=== PATIENT | female | born 1960 | race Native Hawaiian/Other Pacific Islander ===

== ENCOUNTER 2016-11-24 11:49 | Outpatient (CLI) | payer OTHER ==
[~2016-11-24 11:49] MED LIST: ACET-689 PO; CLON1TAB18 PO; MOTRIN JR ST100 MG OR; PAXIL20 MG PO
== END 2016-11-24 11:51 | disposition short-term general hospital (02) ==
LOC: AMB 11:49
DX: R07.89 Other chest pain (principal)
CPT/HCPCS: A0425; A0427

== ENCOUNTER 2016-11-24 11:51 | Emergency (ER) | payer OTHER ==
[~2016-11-24] VITALS: Ht 162.6 cm; Wt 79.8 kg
[2016-11-24 12:31] LABS: PLATELET COUNT 362 K/uL (152-353)
[2016-11-24 12:41] LABS: POTASSIUM 3.6 mmol/L (3.6-5.2); SODIUM 140 mmol/L (136-145)
[2016-11-24 12:51] LABS: PARTIAL THROMBOPLASTIN TIME 22.8 SECONDS (24.5-33.6)
[2016-11-24 13:00] VITALS: BP 164/96; TEMP 97.6
== END 2016-11-24 14:24 | disposition short-term general hospital (02) ==
LOC: ED 11:51
DX: R07.89 Other chest pain (principal); R94.31 Abnormal electrocardiogram [ECG] [EKG]
CPT/HCPCS: 36415; 80053; 82550; 82553; 84484; 85027; 85610; 85730; 86318; 93005; 99285

== ENCOUNTER 2016-11-24 14:20 | Outpatient (CLI) | payer OTHER | END 2016-11-24 14:53 | disposition short-term general hospital (02) | LOC: AMB 14:20 | DX: R07.89 Other chest pain (principal); R94.31 Abnormal electrocardiogram [ECG] [EKG] | CPT/HCPCS: A0425; A0427 ==

== ENCOUNTER 2017-01-01 14:39 | Observation (INO) | payer OTHER ==
[~2017-01-01] VITALS: Ht 165.1 cm; Wt 80.1 kg
[2017-01-01 16:35] LABS: PLATELET COUNT 316 K/uL (152-353)
[2017-01-01 17:00] LABS: SODIUM 137 mmol/L (136-145)
[2017-01-01] MEDS ORDERED: GABA300C2 PO (17:39)
[2017-01-01] MEDS ORDERED: CYCL10TA35 PO (17:40)
[2017-01-01 18:24] VITALS: BP 136/89; TEMP 98.4; Ht 165.1 cm; Wt 80.1 kg
[2017-01-01] MEDS ORDERED: LISITAB PO (19:08)
[2017-01-01] MEDS ORDERED: TRAMADOL HCL E100 MG PO (19:10)
[2017-01-01 20:00] VITALS: BP 128/75; TEMP 97.5
[2017-01-02] VITALS: BP 130/66; TEMP 97.9
[2017-01-02 04:00] VITALS: BP 135/67; TEMP 97.9
[2017-01-02 06:33] LABS: PLATELET COUNT 273 K/uL (152-353)
[2017-01-02 06:50] LABS: POTASSIUM 3.6 mmol/L (3.6-5.2); SODIUM 140 mmol/L (136-145)
[2017-01-02 08:00] VITALS: BP 152/82; TEMP 98.6
[2017-01-02 12:00] VITALS: BP 138/83; TEMP 98.4
--- NOTE | 2017-01-02 15:00 | NUR ---
DR RAND NOTIFIED OF LAB RESULTS. NEW ORDERS RECEIVED TO D/C PT HOME AND CALL IN RX TO PHARMACY FOR [facility]
--- NOTE | 2017-01-02 16:40 | NUR ---
D/C INSTRUCTIONS GIVEN TO PT. RX CALLED INTO [facility] FOR [facility]. IV D/C'D
== END 2017-01-02 16:45 | disposition home or self-care (01) ==
LOC: MED/SURG 14:39
PROVIDERS: Student in an Organized Health Care Education/Training Program; ADMIT Nurse Practitioner
DX: K52.89 Other specified noninfective gastroenteritis and colitis (principal); E86.0 Dehydration; F41.1 Generalized anxiety disorder; I10 Essential (primary) hypertension; E78.00 Pure hypercholesterolemia, unspecified; R00.0 Tachycardia, unspecified
CPT/HCPCS: 80053; 81000; 85027; 87015; 87045; 87324; 87328; 87329; 87449; 87899; 96360; 96361; 96367; 96375; 99220; G0378; G0379; J2175; J2550; J3490